=== PATIENT | male | born 1935 | race Native Hawaiian/Other Pacific Islander ===

== ENCOUNTER 2019-07-16 13:18 | Emergency (ER) | payer OTHER ==
[~2019-07-16] VITALS: Ht 167.6 cm; Wt 89.4 kg
[2019-07-16 13:18] VITALS: BP 182/77; TEMP 97.5
[2019-07-16 13:50] LABS: PLATELET COUNT 118 K/uL (142-355)
[2019-07-16 13:57] LABS: POTASSIUM 3.1 mmol/L (3.6-5.2)
[2019-07-16] MEDS ORDERED: AMLODIPINE BESYLATE PO (16:00)
[2019-07-16] MEDS ORDERED: BUSPIRONE HYDROC5 MG PO (16:01)
[2019-07-16] MEDS ORDERED: B-121000 MC5 PO (16:02)
[2019-07-16] MEDS ORDERED: GAVILA1 PO (16:05)
[2019-07-16] MEDS ORDERED: OMEPRAZOLE DR40 MG PO (16:06)
[2019-07-16] MEDS ORDERED: ROWEEPRA XR500 MG PO (16:06)
[2019-07-16] MEDS ORDERED: TAMSULOSIN HYD0.4 MG PO (16:09)
[2019-07-16] MEDS ORDERED: VITAMIN D31000 UNI1 PO (16:10)
[2019-07-16] MEDS ORDERED: XARELTO20 MG PO (16:12)
[2019-07-16] MEDS ORDERED: [UNRECOGNIZED DRUG - OTHER] PO (16:13)
== END 2019-07-16 14:52 | disposition other institution (70) ==
LOC: ED 13:18
PROVIDERS: Family Medicine
DX: F03.91 Unspecified dementia, unspecified severity, with behavioral disturbance (principal); E87.6 Hypokalemia; Z04.6 Encounter for general psychiatric examination, requested by authority
CPT/HCPCS: 80053; 81000; 85027; 93005; 99283; 99285